=== PATIENT | female | born 1955 | race Caucasian/White ===

== ENCOUNTER 2025-02-22 09:50 | Inpatient (IN) | payer MEDICARE, MEDICAID ==
[~2025-02-22] VITALS: Ht 157.5 cm; Wt 61.2 kg
[2025-02-22] MEDS ORDERED: LIDOCAINE 2% JEL UROJET 10 ML MM ONE (13:39)
[2025-02-22] MEDS ORDERED: FENTANYL PF 100MCG/2ML AMPUL ONE (13:39)
[2025-02-22] MEDS ORDERED: OXYMETAZOLINE HCL NASAL SPRAY 30 ML BOTTLE NS ONE (13:39)
[2025-02-22] MEDS ORDERED: FAMOTIDINE/PF INJ 20 MG/2 ML VIAL IV ONE (13:40)
[2025-02-22] MEDS ORDERED: ROCURONIUM BROMIDE 50 MG/5 ML ONE ×2 (13:40)
[2025-02-22] MEDS ORDERED: VANCOMYCIN 1 GM VIAL ONE (13:57)
[2025-02-22] MEDS ORDERED: dexaMETHasone SOD PHOSPHATE 1 ML ONE (13:57)
[2025-02-22] MEDS ORDERED: LIDOCAINE 2%-EPI 1:100,000 30 ML VIAL ONE (13:57)
[2025-02-22] MEDS ORDERED: Magnesium 1 GM/2 ML VIAL ONE (14:34)
[2025-02-22] MEDS ORDERED: HYDROMORPHONE 1 MG/1 ML DISP.SYRIN IV PRN (16:30)
[2025-02-22] MEDS ORDERED: ACETAMINOPHEN 325 MG TABLET PO PRN (18:30)
[2025-02-22] MEDS ORDERED: ONDANSETRON HCL/PF 4 MG/2 ML VIAL IV PRN (18:30)
[2025-02-22] MEDS ORDERED: METO25TA4 PO (18:48)
[2025-02-22] MEDS ORDERED: METF1000 PO (18:48)
[2025-02-22] MEDS ORDERED: LEVO75TA PO (18:48)
[2025-02-22 20:00] VITALS: BP 144/74; TEMP 97.4; O2SAT 97
[2025-02-22] MEDS: HYDROMORPHONE 1 MG/1 ML DISP.SYRIN IV PRN (20:52)
[2025-02-22] MEDS: IV NS 0.9% 1,000 ML IV PRN (20:53)
[2025-02-22 23:28] VITALS: BP 144/74; TEMP 97.4; O2SAT 97
[2025-02-23] MEDS: VANCOMYCIN 1 GM in IV D5W 250ml IV SCH (01:44)
[2025-02-23 07:00] VITALS: BP 141/66; TEMP 97.5; O2SAT 99
[2025-02-23] MEDS ORDERED: LEVOTHYROXINE SODIUM 75 MCG TABLET PO SCH (15:30)
[2025-02-24] MEDS ORDERED: METOPROLOL SUCCINATE 25 MG TAB.SR.24H PO SCH (09:00)
== END 2025-02-23 15:44 | disposition home or self-care (01) | DRG 141 ==
LOC: DS 09:50 → MED 18:07
PROVIDERS: ADMIT Nurse Practitioner Acute Care; ATTEND Nurse Practitioner Acute Care
PROC: 0NSR04Z Reposition Maxilla with Internal Fixation Device, Open Approach (ICD-10-PCS; 2025-02-22)
PROC: 0N5T0ZZ Destruction of Right Mandible, Open Approach (ICD-10-PCS; 2025-02-22)
PROC: 0N5V0ZZ Destruction of Left Mandible, Open Approach (ICD-10-PCS; 2025-02-22)
PROC: 0NUV07Z Supplement Left Mandible with Autologous Tissue Substitute, Open Approach (ICD-10-PCS; 2025-02-22)
PROC: 0NUR07Z Supplement Maxilla with Autologous Tissue Substitute, Open Approach (ICD-10-PCS; 2025-02-22)
PROC: 0NUT07Z Supplement Right Mandible with Autologous Tissue Substitute, Open Approach (ICD-10-PCS; 2025-02-22)
PROC: 0NUV0JZ Supplement Left Mandible with Synthetic Substitute, Open Approach (ICD-10-PCS; 2025-02-22)
PROC: 0NUT0JZ Supplement Right Mandible with Synthetic Substitute, Open Approach (ICD-10-PCS; 2025-02-22)
PROC: 09UR07Z Supplement Left Maxillary Sinus with Autologous Tissue Substitute, Open Approach (ICD-10-PCS; 2025-02-22)
PROC: 09UQ07Z Supplement Right Maxillary Sinus with Autologous Tissue Substitute, Open Approach (ICD-10-PCS; 2025-02-22)
PROC: 0NSV04Z Reposition Left Mandible with Internal Fixation Device, Open Approach (ICD-10-PCS; 2025-02-22)
PROC: 0NST04Z Reposition Right Mandible with Internal Fixation Device, Open Approach (ICD-10-PCS; 2025-02-22)
PROC: 0NBR0ZX Excision of Maxilla, Open Approach, Diagnostic (ICD-10-PCS; principal; 2025-02-22 13:00)
DX: S02.40DA Maxillary fracture, left side, initial encounter for closed fracture (principal); M87.9 Osteonecrosis, unspecified; D03.9 Melanoma in situ, unspecified; D16.5 Benign neoplasm of lower jaw bone; E03.9 Hypothyroidism, unspecified; J32.0 Chronic maxillary sinusitis; S02.40CA Maxillary fracture, right side, initial encounter for closed fracture; S02.609A Fracture of mandible, unspecified, initial encounter for closed fracture; E11.69 Type 2 diabetes mellitus with other specified complication; I10 Essential (primary) hypertension; M27.2 Inflammatory conditions of jaws; Z79.84 Long term (current) use of oral hypoglycemic drugs; Z79.890 Hormone replacement therapy; Z79.899 Other long term (current) drug therapy; X58.XXXA Exposure to other specified factors, initial encounter; Y92.9 Unspecified place or not applicable
CPT/HCPCS: 82962-TC; A4217; A4338; C1713; G0378; J1100; J1171; J1308; J2405; J2704; J3010; J3373; J3475; J3490; J7030; J7060